=== PATIENT | male | born 1960 | race American Indian/Alaskan Native ===

== ENCOUNTER 2022-01-08 23:21 | Emergency (ER) | payer SELFPAY ==
[2022-01-08 23:29] VITALS: BP 120/71
== END 2022-01-08 23:45 | disposition left against medical advice (07) ==
LOC: ED 23:21
DX: R20.2 Paresthesia of skin (principal); Z53.21 Procedure and treatment not carried out due to patient leaving prior to being seen by health care provider
CPT/HCPCS: 82962